=== PATIENT | female | born 1985 | race Caucasian/White ===

== ENCOUNTER → 2017-04-08 | Outpatient (CLI) | payer OTHER ==
[~2017-04-08] MED LIST: CYCLESSA PO; IBUPROFEN200 M1 PO; TYLENOL 325MG325 MG PO
--- NOTE | 2017-04-09 14:51 | RADIOLOGY REPORT PS360 ---
DIG MAMM-DX UNI-RT W/CAD COMPARISON: Ultrasound 03/29/2017 INDICATION: Abnormal ultrasound showing hypoechoic nodule at 10:00 ORDERING PHYSICIAN: Saravanan Velazquez MD PATIENT AGE: 32 years TECHNIQUE: Standard images performed with spot compression views and right axillary view FINDINGS: Dense fibroglandular tissue is present. No malignant appearing mass or malignant appearing microcalcification. Specifically, no abnormality noted in the region of the sonographically detected nodule. IMPRESSION: Negative mammogram. Ultrasound however is indeterminate and biopsy is recommended BI-RADS CATEGORY: 4_Suspicious Abnormality RECOMMENDED FOLLOWUP: Biopsy of the sonographically detected right breast nodule. This was performed immediately following the mammogram. Cytology is pending (A letter has been sent to the patient regarding results of the study.)
--- NOTE | 2017-04-27 10:36 | RADIOLOGY REPORT PS360 ---
US BIOPSY OR PARACENTESIS, US ORGAN SITE (BREAST), US BREAST-RT COMPLETE W/AXILLA HISTORY: BREAST MASS ORDERING PHYSICIAN: Saravanan Velazquez MD PATIENT AGE: 32 years COMPARISON: None 1816 Right breast ultrasound: Preliminary right breast ultrasound once again confirms a 10 mm hypoechoic nodule at 10:00 region of the right breast corresponding to the previously noted abnormality. TECHNIQUE: Following obtaining informed consent, using aseptic technique and local anesthesia with buffered lidocaine, fine-needle aspiration was performed of the nodule of interest using sonographic guidance. 2 passes were made into the nodule with a 21-gauge spinal needle. Specimen was given to cytology. The procedure was technically difficult due to patient's dense breast tissue. The patient tolerated the procedure well without evidence of immediate complications and left the ultrasound suite in stable condition. CYTOLOGY:Negative for malignant cells. No atypia IMPRESSION: Successful fine-needle aspiration of suspicious nodule in the 10:00 area of the right breast are benign findings. Recommend 6 month sonographic follow-up to confirm stability of the nodule.
== END ==
LOC: RAD 09:10
PROC: 0H9T3ZX Drainage of Right Breast, Percutaneous Approach, Diagnostic (ICD-10-PCS; principal; 2017-04-08)
DX: N63 Unspecified lump in breast (principal)
CPT/HCPCS: G0206-RT

== ENCOUNTER → 2017-06-22 | Outpatient (CLI) | payer OTHER ==
[2017-06-22 10:09] LABS: HEMOGLOBIN 12.6 g/dL (12.2-16.2); LYMPH # 2.1 K/mm3 (0.7-4.5); LYMPH % 23.7 % (10-50.0)
[2017-06-22 10:48] LABS: BUN 11 mg/dL (7-18)
[2017-06-22 10:51] LABS: GFR (ESTIMATED) 97 ML/MIN (59-)
== END ==
LOC: LAB 08:56
PROVIDERS: Family Medicine
DX: I10 Essential (primary) hypertension (principal); R00.2 Palpitations

== ENCOUNTER → 2017-06-25 | Outpatient (CLI) | payer OTHER ==
--- NOTE | 2017-06-29 06:05 | RADIOLOGY REPORT PS360 ---
PROCEDURE: 2-D M-mode and color Doppler study INDICATIONS FOR THE TEST: Chest painX COPD Heart Murmur Tobacco SmokingX PalpitationsX FatigueX Syncope Edema HypertensionXDiabetes Mellitus Rheumatic Fever SOB DOEXObesity Hyperlipidemia Family History HD Additional History PATIENT INFORMATION HEIGHT: 64 WEIGHT:165 GENDER: Female B/P:163/115 2-D/M-MODE INTERPRETATION: 2-D MEASUREMENTS OBSERVED VALUES IN CMS Right Ventricular Dimension (RVDd) 1.5 Interventricular Septum (Thickness)(IVsd) 1.0 Left Ventricular Internal Dimensions(LVIDd) 4.6 Left Ventricular Posterior Wall (Thickness)(LVPWd) 1.0 Aortic Root 2.4 Aortic Cusp Separation 2.0 Left Atrial Dimensions (LAD) 3.0 2D 1. Left atrium is normal size, left ventricle is normal size, there is no concentric left ventricular hypertrophy, visually estimated ejection fraction 55% with no obvious regional wall motion abnormality. 2. The right atrium and right ventricle are relatively normal size and function. 3. The aortic valve is minimally thickened and fibrosed. 4. The mitral and tricuspid valvular grossly normal. 5. The pulmonic valve is poorly visualized. 6. No significant pericardial effusion noted. DOPPLER INTERROGATION: Doppler interrogation of the aortic, mitral and tricuspid valvular presence of mild mitral and tricuspid regurgitation, tricuspid and jet velocity is insufficient for calculation of the right ventricular systolic pressure, diastolic parameters are within normal range. CONCLUSION: 1. Normal left ventricular size, preserved left ventricular systolic function, visually estimated ejection fraction 55% with no obvious regional wall motion abnormality, diastolic parameters are within normal range. 2. Mild mitral and tricuspid regurgitation. 3. No significant pericardial effusion noted.
== END ==
LOC: RT 15:12
DX: I10 Essential (primary) hypertension (principal); R00.2 Palpitations